=== PATIENT | female | born 1940 | race Caucasian/White ===

== ENCOUNTER 2019-03-27 18:22 | Emergency (ER) | payer MEDICARE, OTHER ==
[~2019-03-27] VITALS: Ht 160 cm; Wt 102.1 kg
[~2019-03-27 18:22] MED LIST: CALCIUM PO; CELEBREX 200 M200 MG; CEPHALEXIN 500500 M1 PO; COLACE 100 MG100 MG; DETROL LA4 MG PO; ESTRACE1 MG PO; GLUCOSAMINE S1000 M2 PO; GLUCOSAMINE1000 MG PO; LIDODERM 5%1 PATC1 TOP; LIPITOR20 MG PO; LIVALO2 MG PO; LOSARTAN POTASS50 MG PO; MOBIC15 MG PO; MOM; MOM PO; NEURONTIN 300300 M1; NORVASC10 MG PO; OXYCONTIN10 M1; OXYIR5 MG; PROTONIX40 M2 PO; TORSEMIDE20 MG PO; ULTRAM 50MG TAB50 MG; XARELTO10 MG
[2019-03-27] MEDS ORDERED: MOBIC15 MG PO (18:40)
[2019-03-27] MEDS ORDERED: PREDNISONE 5 MG5 M1 PO (18:40)
[2019-03-27] MEDS ORDERED: ESTRADIOL 1 MG T1 M1 PO (18:40)
[2019-03-27] MEDS ORDERED: LASIX 40 MG TAB40 M2 PO (18:40)
[2019-03-27] MEDS ORDERED: SYNTHROID50 MCG PO (18:40)
[2019-03-27] MEDS ORDERED: MELATONIN5 M1 PO (18:41)
[2019-03-27] MEDS ORDERED: POTASSIUM20 PO (18:41)
[2019-03-27] MEDS ORDERED: ASPIR 8181 MG PO (18:41)
[2019-03-27] MEDS ORDERED: ONDANSETRON HCL4 M2 PO (20:20)
[2019-03-27] MEDS ORDERED: NORCO 5-325 TA1 EAC1 PO (20:20)
[2019-03-27 20:55] VITALS: BP 152/85
[2019-04-01] MEDS ORDERED: COZAAR 25 MG TA25 M1 PO (09:47)
== END 2019-03-27 20:57 | disposition home or self-care (01) ==
LOC: M.ERS 18:22
DX: M25.561 Pain in right knee (principal); I10 Essential (primary) hypertension; E78.00 Pure hypercholesterolemia, unspecified; M19.90 Unspecified osteoarthritis, unspecified site; M48.02 Spinal stenosis, cervical region; Z90.710 Acquired absence of both cervix and uterus; Z96.651 Presence of right artificial knee joint; Z88.5 Allergy status to narcotic agent

== ENCOUNTER → 2019-03-29 | Outpatient (CLI) | payer MEDICARE, OTHER ==
[~2019-03-29] MED LIST changes: +ASPIR 8181 MG PO; +COZAAR 25 MG TA25 M1 PO; +ESTRADIOL 1 MG T1 M1 PO; +LASIX 40 MG TAB40 M2 PO; +MELATONIN5 M1 PO; +NORCO 5-325 TA1 EAC1 PO; +NORVASC5 MG PO; +ONDANSETRON HCL4 M2 PO; +POTASSIUM20 PO; +PREDNISONE 5 MG5 M1 PO; +SYNTHROID50 MCG PO
== END ==
LOC: M.MRI 11:21
DX: M25.461 Effusion, right knee (principal); R60.0 Localized edema

== ENCOUNTER 2019-04-01 12:13 | Inpatient (IN) | payer MEDICARE, OTHER ==
[~2019-04-01] VITALS: Ht 160 cm; Wt 115.7 kg
--- NOTE | ~2019-04-01 | OP ---
[facility] [address] [place] [address] OPERATIVE REPORT Name: SAGAR MCNEILL Room: [address] [facility]#: [id number] Admission: 04/01/19 Attend Phys: Rex Coley Discharge: Date of : 44 Report #: [id number] THIS REPORT FOR: //name// CC: Edgar Hendricks DICTATED BY: Ruben Plaza DO DATE OF SERVICE: 04/01/2019 PREOPERATIVE DIAGNOSIS: Right quadriceps tendon rupture. POSTOPERATIVE DIAGNOSIS: Right quadriceps tendon rupture. OPERATION PERFORMED: Repair of right quadriceps tendon. SURGEON: Cali Erazo M.D. [employer]ING TEACHER: Joana Garcia PA-C., and Ruben Plaza D.O. ESTIMATED BLOOD LOSS: 150 Ml. ANESTHESIA: Spinal. ANTIBIOTICS: 2 g IV Ancef given preoperatively. DRAINS: None. SPECIMENS: None. COMPLICATIONS: None. CONDITION: Stable. DISPOSITION: PACU to Med/Surg floor. OPERATIVE INDICATIONS: The patient is a pleasant 78-year-old female who felt a pop in her right knee. She was seen in the Emergency Department prior to being seen in the Orthopedic Clinic. An MRI was obtained, which confirmed that she sustained a quadriceps tendon rupture. She has had a right total knee arthroplasty several years ago and otherwise had been doing well with this knee other than she had developed some pain in it over the last couple of months. We discussed with her the recommendation for repair of her extensor mechanism, which would help her to ambulate and regain better function in the extremity. Risks, indications, and treatment alternatives were also reviewed with the [facility] [address] [place] [address] OPERATIVE REPORT Name: OSITOSAGAR Shade Room: [address] [facility]#: [id number] Admission: 04/01/19 Attend Phys: Rex Coley Discharge: Date of : 44 Report #: [id number] patient and her informed consent was signed. DESCRIPTION OF PROCEDURE: The patient was identified in preop holding area and the correct side was marked and she was taken to the operating suite and placed on the operating table in a supine position. Spinal anesthesia was then induced per the anesthesia team. Please refer to their procedural notes. She was then placed back in the supine position and the right lower extremity was sterilely prepped and draped in the usual fashion. Timeout was then performed to confirm that her safety checklist has been completed. All the OR personnel was in agreement. The previous midline incision was marked out and used for a surgical approach. Sharp dissection was carried down through the skin and subcutaneous tissue to the level of the extensor mechanism. The quadriceps tendon was found to be completely ruptured. There was very little viable tissue left on the patellar side of the tear. This was debrided using a rongeur as well as sharp dissection. The medial and lateral retinacular tissues were also noted to be partially torn. The free edges of the tendon were freshened up and debrided and all the hematoma was evacuated. We then used two of the [employer] Bailee JuggerKnot 2.9-mm suture anchors. These were drilled and then placed in the medial and lateral third of the superior pole of the patella. We then used each limb from the suture anchors, passed in a locking [place] fashion through the quadriceps tendon for a length of approximately 5 cm. This process was repeated for each suture limb. The suture limbs were then tied down onto each other. This was then oversewn with a #2 FiberWire suture. This was also used to repair the medial and lateral retinacular structures. This did leave us with a very nice repair of the extensor mechanism and there was no gapping from 0-40 degrees of motion. The wound was copiously irrigated and vancomycin powder was sprinkled throughout the wound. Subcutaneous layer was then reapproximated with 2-0 Monocryl suture in a buried fashion. The subcuticular layer was reapproximated with a running 3-0 Stratafix suture. Skin glue was applied to the incision and allowed to dry before a sterile Mepilex bandage was applied. A 3D hinged brace was then placed, locked in extension. The patient was awakened from anesthesia and transferred to the PACU in stable condition with no apparent complications. Sponge and needle counts were reported correct per the OR personnel. ATTESTATION: Dr. Cali Erazo was present for all the vital portions of the procedure. By: [id number] 1954Roberchela Erazo DO /won
[~2019-04-01 12:13] MED LIST changes: -NORVASC5 MG PO
[2019-04-01] MEDS ORDERED: NORVASC5 MG PO (12:33)
[2019-04-01] MEDS ORDERED: PREDNISONE 5 MG5 M1 PO (12:35)
[2019-04-01 13:09] LABS: HEMATOCRIT 41.8 % (37.0-47.0); HEMOGLOBIN 13.7 gm/dL (12.0-15.0); MCH 28.3 pg (26.0-34.0); MCHC 32.8 g/dL (28.0-37.0); MCV 86.3 fL (80.0-100.0); MPV 8.5 fl. (7.2-11.1); RBC 4.84 mil/uL (4.20-5.00); RDW-CV 14.3 % (10.5-14.5); WBC 9.6 thou/uL (4.0-11.0)
[2019-04-01 13:14] LABS: CREATININE 1.1 mg/dL (0.6-1.3); POTASSIUM 3.7 mmol/L (3.5-5.1)
[2019-04-01 13:19] LABS: ALBUMIN 3.3 g/dL (3.4-5.0); TOTAL BILIRUBIN 0.7 mg/dL (<0.1-1.0)
--- NOTE | 2019-04-01 15:58 | EKG ---
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
[2019-04-01 18:21] VITALS: BP 144/42
[2019-04-01 21:20] VITALS: BP 189/71
[2019-04-02 00:04] VITALS: BP 186/87
[2019-04-02 04:05] VITALS: BP 181/78
[2019-04-02 05:11] LABS: HEMOGLOBIN 12.7 gm/dL (12.0-15.0)
[2019-04-02 07:35] VITALS: BP 192/75
[2019-04-02 16:00] VITALS: BP 168/78
[2019-04-02 20:20] VITALS: BP 183/81
[2019-04-03 04:00] VITALS: BP 184/81
[2019-04-03 04:11] LABS: HEMATOCRIT 36.4 % (37.0-47.0); HEMOGLOBIN 11.8 gm/dL (12.0-15.0)
[2019-04-03 09:00] VITALS: BP 172/68
[2019-04-03 16:14] VITALS: BP 156/71
[2019-04-03 20:27] VITALS: BP 169/67
[2019-04-04 06:00] VITALS: BP 187/82
[2019-04-04 07:20] VITALS: BP 174/76
[2019-04-04 15:00] VITALS: BP 177/64
[2019-04-04 19:40] VITALS: BP 197/114
[2019-04-05 08:00] VITALS: BP 186/63
[2019-04-05 10:39] VITALS: BP 186/63
[2019-04-05 13:21] VITALS: BP 186/63
== END 2019-04-05 13:20 | DRG 501 ==
LOC: M.SUR 12:13 → M.ORTHSURG 16:13 → M.TBA 16:13 → M.SUR 16:27 → M.ORTHSURG 18:03
PROVIDERS: Orthopaedic Surgery; ADMIT Internal Medicine
PROC: 0LQL0ZZ Repair Right Upper Leg Tendon, Open Approach (ICD-10-PCS; principal; 2019-04-01)
DX: S76.111A Strain of right quadriceps muscle, fascia and tendon, initial encounter (principal); E44.1 Mild protein-calorie malnutrition; Z68.42 Body mass index [BMI] 45.0-49.9, adult; E66.01 Morbid (severe) obesity due to excess calories; E78.5 Hyperlipidemia, unspecified; I10 Essential (primary) hypertension; M19.90 Unspecified osteoarthritis, unspecified site; Z96.651 Presence of right artificial knee joint; Z60.2 Problems related to living alone; Z88.6 Allergy status to analgesic agent; Z90.710 Acquired absence of both cervix and uterus; Z98.42 Cataract extraction status, left eye; Z98.41 Cataract extraction status, right eye; Z79.82 Long term (current) use of aspirin; Z79.899 Other long term (current) drug therapy; X58.XXXA Exposure to other specified factors, initial encounter; Y93.89 Activity, other specified; Y92.89 Other specified places as the place of occurrence of the external cause; Y99.8 Other external cause status